=== PATIENT | female | born 1940 | race American Indian/Alaskan Native ===

== ENCOUNTER 2018-05-30 17:07 | Emergency (ER) | payer MEDICARE, OTHER ==
[~2018-05-30] VITALS: Ht 157.5 cm; Wt 81.2 kg
[2018-05-30 17:40] LABS: BASOPHILS # (AUTO) 0.1 X10'3 (0-0.2); BASOPHILS % (AUTO) 0.4 % (0-1); EOSINOPHILS # (AUTO) 0.2 X10'3 (0-0.9); EOSINOPHILS % (AUTO) 1.6 % (0-6); HEMATOCRIT 43.1 % (35.0-45.0); HEMOGLOBIN 14.4 g/dl (12.0-16.0); LYMPHOCYTES # (AUTO) 3.4 X10'3 (1.1-4.8); LYMPHOCYTES % (AUTO) 27.2 % (21-51); MEAN CORPUSCULAR HEMOGLOBIN 30.9 PG (27.0-31.0); MEAN CORPUSCULAR HGB CONC 33.4 % (33.0-36.5); MEAN CORPUSCULAR VOLUME 92.6 FL (78-98); MEAN PLATELET VOLUME 7.9 FL (7.4-10.4); MONOCYTES # (AUTO) 0.8 X10'3 (0-0.9); MONOCYTES % (AUTO) 6.5 % (2-12); NEUTROPHILS # (AUTO) 8.1 X10'3 (1.8-7.7); NEUTROPHILS % (AUTO) 64.3 % (42-75); PLATELET COUNT 410 X10'3 (140-440); RED BLOOD COUNT 4.66 X10'6 (4.20-5.60); RED CELL DISTRIBUTION WIDTH 13.8 % (11.5-14.5); WHITE BLOOD COUNT 12.6 X10'3 (4.5-11.0)
[2018-05-30 17:53] LABS: ALANINE AMINOTRANSFERASE 32 U/L (12-78); ALBUMIN 3.6 G/DL (3.4-5.0); ALBUMIN/GLOBULIN RATIO 0.9 (1.1-1.5); ALKALINE PHOSPHATASE 140 IU/L (46-116); ANION GAP 8 (8-16); ASPARTATE AMINO TRANSFERASE 18 U/L (10-37); BILIRUBIN,TOTAL 0.3 MG/DL (0.1-1.0); BLOOD UREA NITROGEN 10 MG/DL (7-18); BUN/CREATININE RATIO 11.5 (6.6-38.0); CHLORIDE 102 MMOL/L (99-107); CREATININE 0.87 MG/DL (0.40-0.90); GLUCOSE 124 MG/DL (70-104); LIPASE 154 U/L (73-393); POTASSIUM 3.8 MMOL/L (3.5-5.1); SODIUM 140 MMOL/L (135-145); TOTAL CARBON DIOXIDE 30.1 MMOL/L (24-32); TOTAL PROTEIN 7.5 G/DL (6.4-8.2); eGFR 63 ML/MIN
[2018-05-30 18:01] LABS: INR 0.9 INR; PARTIAL THROMBOPLASTIN TIME 28 SECONDS (22-32); PROTHROMBIN TIME 9.3 SECONDS (9.0-12.0)
[2018-05-30 20:37] VITALS: BP 176/92
== END 2018-05-30 20:48 | disposition home or self-care (01) ==
LOC: ER 17:08
DX: R07.89 Other chest pain (principal); E11.9 Type 2 diabetes mellitus without complications; I10 Essential (primary) hypertension; Z88.2 Allergy status to sulfonamides; Z88.5 Allergy status to narcotic agent
CPT/HCPCS: 36415; 71045; 80053; 83690; 84484; 85025; 85610; 85730; 93005; 99285

== ENCOUNTER 2018-07-24 08:00 | Emergency (ER) | payer MEDICARE, OTHER ==
[~2018-07-24] VITALS: Ht 157.5 cm; Wt 75.0 kg
[2018-07-24] MEDS ORDERED: aspirin 81mg tab.chew PO ONE (08:20)
[2018-07-24] MEDS ORDERED: LORazepam 2 mg/ml vial IV ONE (08:20)
[2018-07-24] MEDS ORDERED: normal saline 1000ML IV soln IVB ONE (08:20)
[2018-07-24 08:43] LABS: BASOPHILS # (AUTO) 0.2 X10'3 (0-0.2); BASOPHILS % (AUTO) 1.2 % (0-1); EOSINOPHILS # (AUTO) 0.3 X10'3 (0-0.9); HEMATOCRIT 43.3 % (35.0-45.0); HEMOGLOBIN 14.2 g/dl (12.0-16.0); LYMPHOCYTES # (AUTO) 2.4 X10'3 (1.1-4.8); LYMPHOCYTES % (AUTO) 16.9 % (21-51); MEAN CORPUSCULAR HEMOGLOBIN 30.6 PG (27.0-31.0); MEAN CORPUSCULAR HGB CONC 32.9 % (33.0-36.5); MEAN PLATELET VOLUME 8.3 FL (7.4-10.4); MONOCYTES # (AUTO) 1.1 X10'3 (0-0.9); MONOCYTES % (AUTO) 7.7 % (2-12); NEUTROPHILS # (AUTO) 10.5 X10'3 (1.8-7.7); NEUTROPHILS % (AUTO) 72.2 % (42-75); PLATELET COUNT 379 X10'3 (140-440); RED BLOOD COUNT 4.65 X10'6 (4.20-5.60); RED CELL DISTRIBUTION WIDTH 12.4 % (11.5-14.5); WHITE BLOOD COUNT 14.5 X10'3 (4.5-11.0)
[2018-07-24 08:58] LABS: ALANINE AMINOTRANSFERASE 31 U/L (12-78); ALBUMIN 3.4 G/DL (3.4-5.0); ALBUMIN/GLOBULIN RATIO 0.9 (1.1-1.5); ALKALINE PHOSPHATASE 122 IU/L (46-116); ANION GAP 10 (8-16); ASPARTATE AMINO TRANSFERASE 16 U/L (10-37); BILIRUBIN,TOTAL 0.4 MG/DL (0.1-1.0); BLOOD UREA NITROGEN 9 MG/DL (7-18); BUN/CREATININE RATIO 12.7 (6.6-38.0); CALCIUM 8.4 MG/DL (8.5-10.1); CHLORIDE 103 MMOL/L (99-107); CREATININE 0.71 MG/DL (0.40-0.90); GLUCOSE 184 MG/DL (70-104); POTASSIUM 3.7 MMOL/L (3.5-5.1); SODIUM 139 MMOL/L (135-145); TOTAL CARBON DIOXIDE 26.1 MMOL/L (24-32); TOTAL PROTEIN 7.1 G/DL (6.4-8.2); eGFR 80 ML/MIN
[2018-07-24 09:02] LABS: INR 0.9 INR; PROTHROMBIN TIME 9.6 SECONDS (9.0-12.0)
[2018-07-24] MEDS ORDERED: GUAI-647 PO (09:30)
[2018-07-24] MEDS ORDERED: AMOX-419 PO (09:30)
[2018-07-24 09:33] LABS: CLARITY,URINE CLEAR (Clear); COLOR,URINE YELLOW (Yellow); GLUCOSE, URINE NEGATIVE (Neg); KETONES,URINE NEGATIVE (Neg); LEUKOCYTE ESTERASE ,URINE NEGATIVE (Neg); NITRITES, URINE NEGATIVE (Neg); OCCULT BLOOD,URINE NEGATIVE (Neg); PROTEIN,URINE NEGATIVE (Neg); UA COLLECTION TYPE CLN CATCH MIDSTREAM; UROBILINOGEN,URINE 0.2 E.U/dL (0.2-1.0)
[2018-07-24 10:13] VITALS: BP 162/86
== END 2018-07-24 10:15 | disposition home or self-care (01) ==
LOC: ER 08:00
DX: J40 Bronchitis, not specified as acute or chronic (principal); I10 Essential (primary) hypertension; E11.9 Type 2 diabetes mellitus without complications; Z88.2 Allergy status to sulfonamides; R42 Dizziness and giddiness; Z88.5 Allergy status to narcotic agent
CPT/HCPCS: 36415; 71045; 80053; 81003; 83880; 84484; 85025; 85610; 93005; 96374; 99284; J2060; J7030

== ENCOUNTER 2020-05-30 23:55 | Observation (INO) | payer MEDICARE, OTHER ==
[~2020-05-30] VITALS: Ht 157.5 cm; Wt 70.5 kg
[2020-05-31] MEDS ORDERED: normal saline 1000ML IV soln IVB ONE (00:55)
--- NOTE | 2020-05-31 01:25 | NUR ---
DEVYN DAUGHTER CALL FOR RIDE [phone]
[2020-05-31 01:29] LABS: BASOPHILS # (AUTO) 0.1 X10'3 (0-0.2); BASOPHILS % (AUTO) 0.6 % (0-1); EOSINOPHILS % (AUTO) 0.3 % (0-6); HEMATOCRIT 41.1 % (35.0-45.0); HEMOGLOBIN 13.9 g/dl (12.0-16.0); LYMPHOCYTES # (AUTO) 1.7 X10'3 (1.1-4.8); LYMPHOCYTES % (AUTO) 16.8 % (21-51); MEAN CORPUSCULAR HEMOGLOBIN 31.6 PG (27.0-31.0); MEAN CORPUSCULAR HGB CONC 33.7 g/dL (33.0-36.5); MEAN CORPUSCULAR VOLUME 93.8 FL (78-98); MEAN PLATELET VOLUME 8.3 FL (7.4-10.4); MONOCYTES # (AUTO) 1.1 X10'3 (0-0.9); MONOCYTES % (AUTO) 10.9 % (2-12); NEUTROPHILS # (AUTO) 7.4 X10'3 (1.8-7.7); NEUTROPHILS % (AUTO) 71.4 % (42-75); PLATELET COUNT 365 X10'3 (140-440); RED BLOOD COUNT 4.38 X10'6 (4.20-5.60); RED CELL DISTRIBUTION WIDTH 13.9 % (11.5-14.5); WHITE BLOOD COUNT 10.3 X10'3 (4.5-11.0)
[2020-05-31] MEDS ORDERED: acetaminophen 325mg tablet PO ONE (01:40)
[2020-05-31] MEDS ORDERED: oxyCODONE IR 5mg (immed. release) tablet PO ONE ×2 (01:40→02:10)
[2020-05-31 01:48] LABS: ALANINE AMINOTRANSFERASE 20 U/L (12-78); ALBUMIN 3.3 G/DL (3.4-5.0); ALBUMIN/GLOBULIN RATIO 0.9 (1.1-1.5); ALKALINE PHOSPHATASE 134 IU/L (46-116); ANION GAP 9 (8-16); ASPARTATE AMINO TRANSFERASE 21 U/L (10-37); BILIRUBIN,TOTAL 0.3 MG/DL (0.1-1.0); BLOOD UREA NITROGEN 7 MG/DL (7-18); BUN/CREATININE RATIO 9.2 (6.6-38.0); CALCIUM 8.3 MG/DL (8.5-10.1); CHLORIDE 96 MMOL/L (99-107); CREATININE 0.76 MG/DL (0.40-0.90); GLUCOSE 206 MG/DL (70-104); SODIUM 129 MMOL/L (135-145); TOTAL CARBON DIOXIDE 24.5 MMOL/L (24-32); eGFR 74 ML/MIN
[2020-05-31] MEDS ORDERED: normal saline 1000ml 1,000 ML IV ONE (02:20)
[2020-05-31] MEDS ORDERED: ketorolac tromethamine 15mg/ml inj. IV ONE (02:20)
[2020-05-31] MEDS ORDERED: dexamethasone sod phosphate 10mg/ml inj IV STA ×2 (03:03→04:10)
[2020-05-31 03:09] LABS: CLARITY,URINE CLEAR (Clear); COLOR,URINE YELLOW (Yellow); GLUCOSE, URINE NEGATIVE (Neg); KETONES,URINE NEGATIVE (Neg); LEUKOCYTE ESTERASE ,URINE TRACE (Neg); NITRITES, URINE NEGATIVE (Neg); OCCULT BLOOD,URINE NEGATIVE (Neg); PROTEIN,URINE NEGATIVE (Neg); UROBILINOGEN,URINE 0.2 E.U/dL (0.2-1.0)
[2020-05-31 03:14] LABS: UA COLLECTION TYPE CLN CATCH MIDSTREAM
[2020-05-31 03:15] LABS: BACTERIA,URINE FEW /HPF (Neg); RBC,URINE 0-2 /HPF (0-2); SQUAMOUS EPITHELIAL CELL,UR FEW /LPF (FEW); WBC,URINE 0-4 /HPF (0-4)
[2020-05-31] MEDS ORDERED: METF-436 PO (03:39)
[2020-05-31] MEDS ORDERED: FLAX100031 PO (03:39)
[2020-05-31] MEDS ORDERED: MULT-85 PO (03:39)
[2020-05-31] MEDS ORDERED: ASPI-1265 PO (03:39)
[2020-05-31] MEDS ORDERED: ALPR1TAB2 PO (03:39)
[2020-05-31] MEDS ORDERED: LISI-600 PO (03:39)
[2020-05-31] MEDS ORDERED: magnesium 4gm in 100ml NS 100 ML IV PRN (03:50)
[2020-05-31] MEDS ORDERED: magnesium 2GM in 50ml NS 50 ML IV PRN (03:50)
[2020-05-31] MEDS ORDERED: acetaminophen 325mg tablet PO PRN (03:50)
[2020-05-31] MEDS ORDERED: normal saline 1000ml 1,000 ML IV SCH (03:50)
[2020-05-31] MEDS ORDERED: magnesium Cl slow-release 64mg tablet PO PRN (03:50)
[2020-05-31] MEDS ORDERED: potassium Cl 20 mEq SR tablet PO PRN ×2 (03:50)
[2020-05-31] MEDS ORDERED: ondansetron/PF 4mg/2ml inj IV PRN (03:50)
[2020-05-31] MEDS ORDERED: potassium CL 10mEq/100ml bag 100 ML IV PRN ×2 (03:50)
--- NOTE | 2020-05-31 07:35 | NUR ---
Received to room 4018, [facility] isolation.
[2020-05-31 07:50] VITALS: BP 114/79
[2020-05-31] MEDS: K and/or MAG REPLACEMENT MC SCH ×2 (08:00→20:00)
[2020-05-31] MEDS ORDERED: heparin, porcine 5000 units/ml vial SQ SCH (08:00)
[2020-05-31] MEDS: docusate sod 100mg capsule PO SCH ×2 (08:00→19:40)
[2020-05-31] MEDS ORDERED: dextrose ORAL solution 15 GM/59 ML bottle PO PRN ×2 (08:25)
[2020-05-31] MEDS ORDERED: MESSAGE TO PHARMACY PO ONE (08:25)
[2020-05-31] MEDS ORDERED: dextrose 50%-water 50ml dispensing syringe IV PRN ×2 (08:25)
[2020-05-31] MEDS ORDERED: glucagon, human recombinant 1mg kit SUBCUT PRN (08:25)
[2020-05-31 08:49] LABS: HEMOGLOBIN A1C 6.7 % (4.5-6.2)
[2020-05-31 11:06] LABS: D-DIMER 1.41 MG/L FEU (0-0.50)
[2020-05-31 11:12] LABS: C-REACTIVE PROTEIN 5.83 MG/DL (0.0-0.5)
[2020-05-31 12:30] VITALS: BP 121/70
[2020-05-31] MEDS: aspirin 81mg tab.chew PO SCH (12:30)
[2020-05-31] MEDS: lisinopril 20mg tablet PO SCH (12:30)
[2020-05-31] MEDS: insulin Lispro (HumaLOG) vial - multi-dose SQ SCH ×2 (14:22→19:40)
--- NOTE | 2020-05-31 17:14 | NUR ---
PAGER ID: [phone] MESSAGE: Lakeisha Rosa, requesting [place] for pain. DEE [id number]
[2020-05-31] MEDS ORDERED: HYDR-3972 (17:16)
[2020-05-31 18:00] VITALS: BP 132/76
--- NOTE | 2020-05-31 18:13 | NUR ---
Problems reprioritized. Patient report given, questions answered & plan of care reviewed with Annalisa TAVAREZ.
--- NOTE | 2020-05-31 18:15 | NUR ---
Patient in room ORTHO 4018. I have received report from DAYSI Lane and had the opportunity to ask questions and assume patient care.
--- NOTE | 2020-05-31 19:44 | NUR ---
Paged MD Cortes regarding patient request for [place] 10-325 as patient stated she takes at home for chronic pain. 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 She advised us to inform the patient of this information as well. Primary care nurse notified and will inform patient per MD Cortes's request. New order received for a one time dose of [place] 5-325 MG PO now.
[2020-05-31] MEDS ORDERED: HYDROcodone/acetaminophen 5mg/325mg tablet PO ONE (19:45)
[2020-05-31] MEDS ORDERED: enoxaparin 40mg/0.4ml syringe SUBCUT SCH (20:00)
[2020-05-31] MEDS ORDERED: HYDROcodone/acetaminophen 10/325mg tab PO PRN (20:35)
[2020-05-31] MEDS ORDERED: ALPRAZolam 0.5mg tablet PO SCH (21:00)
[2020-05-31] MEDS ORDERED: insulin glargine (Lantus) pen - multi-dose SQ SCH (21:00)
[2020-05-31 22:00] VITALS: BP 150/77
[2020-06-01 05:40] VITALS: BP 145/70
--- NOTE | 2020-06-01 06:20 | NUR ---
Problems reprioritized. Patient report given, questions answered & plan of care reviewed with DAYSI Lane.
[2020-06-01 06:22] LABS: BASOPHILS % (AUTO) 0.3 % (0-1); EOSINOPHILS % (AUTO) 0 % (0-6); HEMATOCRIT 37.7 % (35.0-45.0); HEMOGLOBIN 12.9 g/dl (12.0-16.0); LYMPHOCYTES # (AUTO) 1.5 X10'3 (1.1-4.8); LYMPHOCYTES % (AUTO) 13.1 % (21-51); MEAN CORPUSCULAR HEMOGLOBIN 31.8 PG (27.0-31.0); MEAN CORPUSCULAR HGB CONC 34.3 g/dL (33.0-36.5); MONOCYTES # (AUTO) 1.3 X10'3 (0-0.9); MONOCYTES % (AUTO) 11.4 % (2-12); NEUTROPHILS # (AUTO) 8.6 X10'3 (1.8-7.7); NEUTROPHILS % (AUTO) 75.2 % (42-75); PLATELET COUNT 391 X10'3 (140-440); RED BLOOD COUNT 4.06 X10'6 (4.20-5.60); RED CELL DISTRIBUTION WIDTH 13.4 % (11.5-14.5); WHITE BLOOD COUNT 11.4 X10'3 (4.5-11.0)
[2020-06-01 06:41] LABS: ANION GAP 11 (8-16); BLOOD UREA NITROGEN 8 MG/DL (7-18); BUN/CREATININE RATIO 15.7 (6.6-38.0); CALCIUM 8.5 MG/DL (8.5-10.1); CHLORIDE 106 MMOL/L (99-107); CREATININE 0.51 MG/DL (0.40-0.90); GLUCOSE 153 MG/DL (70-104); SODIUM 142 MMOL/L (135-145); TOTAL CARBON DIOXIDE 24.8 MMOL/L (24-32); eGFR > 90 ML/MIN
[2020-06-01 07:50] LABS: TOTAL CELLS COUNTED 100
[2020-06-01] MEDS: aspirin 81mg tab.chew PO SCH (07:50)
[2020-06-01 07:53] LABS: PLATELET ESTIMATE NORMAL
[2020-06-01 08:00] VITALS: BP 148/79
[2020-06-01] MEDS: K and/or MAG REPLACEMENT MC SCH (08:00)
[2020-06-01] MEDS ORDERED: DEXAMETHASONE 6 MG TABLET PO SCH (08:00)
[2020-06-01] MEDS: docusate sod 100mg capsule PO SCH (08:00)
[2020-06-01 08:12] VITALS: BP_SYST 148
[2020-06-01] MEDS: lisinopril 20mg tablet PO SCH (08:12)
[2020-06-01] MEDS: insulin Lispro (HumaLOG) vial - multi-dose SQ SCH ×2 (09:07→13:53)
[2020-06-01] MEDS ORDERED: DEXA1TAB PO (11:04)
== END 2020-06-01 16:33 | disposition home or self-care (01) ==
LOC: ER 23:56 → ED HOLD 05-31 03:48 → ORTHO 4S 05-31 07:33
PROVIDERS: ADMIT Internal Medicine; ATTEND Family Medicine
DX: U07.1 COVID-19 (principal); J18.8 Other pneumonia, unspecified organism; R09.02 Hypoxemia; I10 Essential (primary) hypertension; E11.9 Type 2 diabetes mellitus without complications; E87.1 Hypo-osmolality and hyponatremia; F41.9 Anxiety disorder, unspecified; Z79.82 Long term (current) use of aspirin; Z79.84 Long term (current) use of oral hypoglycemic drugs; Z79.899 Other long term (current) drug therapy; Z88.2 Allergy status to sulfonamides; Z88.5 Allergy status to narcotic agent
CPT/HCPCS: 36415; 71045; 80048; 80053; 81001; 82948; 83036; 83615; 83735; 84145; 84484; 85007; 85025; 85379; 86140; 87040; 87081; 87088; 93005; 96361; 96372; 96374; 99285; G0378; J1100; J1815; J7030; J1650; J8540